=== PATIENT | female | born 1940 | race Caucasian/White ===

== ENCOUNTER 2016-02-19 02:42 | Inpatient (IN) | payer OTHER ==
[2016-02-15 14:34] LABS: MANUAL DIFF NEEDED? NO
[2016-02-15 14:41] LABS: URINE SOURCE CLEAN CATCH
[2016-02-15 14:41] LABS: BASO% 0.4 % (0.0-0.8); EOS# 0.16 X1000 (0.0-0.7); EOS% 2.2 % (0.0-10.0); HEMATOCRIT 41.9 % (37.0-47.0); HEMOGLOBIN 13.1 g/dL (12.0-16.0); LYMPH# 1.27 X1000 (1.2-3.4); LYMPH% 17.2 % (20.5-51.1); MCH 31.3 PG (27-31); MCHC 31.3 g/dL (33-37); MCV 100.2 FL (81-99); MONO# 0.57 X1000 (0.11-0.59); MONO% 7.7 % (1.7-9.3); MPV 9.8 FL (7.4-10.4); NEUT% 72.5 % (42.2-75.2); PLT 247 X1000 (130-400); RBC 4.18 XMIL (4.2-5.4)
[2016-02-15 14:45] LABS: BILIRUBIN URINE NEGATIVE (NEGATIVE); BLOOD URINE NEGATIVE (NEGATIVE); CLARITY CLEAR (CLEAR); COLOR YELLOW; GLUCOSE URINE NEGATIVE (NEGATIVE); LEUKOCYTES URINE MODERATE (NEGATIVE); NITRITE URINE POSITIVE (NEGATIVE); PROTEIN URINE TRACE mg/dL (NEGATIVE); UROBILINOGEN URINE 0.2 EU/dL (0.2-1.0)
[2016-02-15 14:50] LABS: INR 1.05; PROTIME 11.1 Seconds (9.2-11.7); PTT 26.6 Seconds (22.0-36.0)
[2016-02-15 14:54] LABS: URINE CAST NONE SEEN /LPF; URINE CRYSTAL NONE SEEN /HPF; URINE EPITHELIAL CELLS <10 /HPF (<10); URINE RBC <10 /HPF (<10); URINE WBC 20-40 /HPF (<10)
[2016-02-15 14:56] LABS: CALCIUM 9.4 mg/dL (8.8-10.2); POTASSIUM 4.3 mmol/L (3.5-5.1)
[2016-02-19] MEDS ORDERED: REGLAN ONE (10:29)
[2016-02-19] MEDS ORDERED: PEPCID ONE (10:29)
[2016-02-19] MEDS ORDERED: LYRICA ONE (10:30)
[2016-02-19] MEDS ORDERED: CELEBREX ONE (10:30)
[2016-02-19] MEDS ORDERED: LR 1,000 ML ONE (10:30)
[2016-02-19] MEDS ORDERED: COLACE ONE (10:30)
[2016-02-19] MEDS ORDERED: KEFZOL 2 GM/D5W 50 ML ONE (10:31)
--- NOTE | 2016-02-19 10:34 | HISTORY AND PHYSICAL ---
CHIEF COMPLAINT: Pain, left knee. HISTORY OF PRESENT ILLNESS: This is a 75-year-old, white female with a history of increasing pain about her left knee for several years. No improvement seen with conservative treatment. Examination and x-rays compatible with osteoarthritis about her left knee. Cyril that she would benefit from admission for surgery for a left total knee arthroplasty. This has been discussed with her including expected results and possible complications, and she wished to proceed. Regular physician is Dr. Jimenez in [place]. DRUG ALLERGIES: She is allergic to Levaquin. REGULAR MEDICATIONS: Include aspirin, Zocor, valsartan, , Zoloft, Zetia, carvedilol, Flomax. Please see the chart for additional medications and dosages. SERIOUS ILLNESSES: Does have a history of hypertension, coronary artery disease. Has had coronary stents, [place] in 1999, COPD, sleep apnea. Uses CPAP at night. Gastric reflux, breast cancer bilaterally. PREVIOUS SURGERIES: Had bilateral mastectomy, cervical fusion, hysterectomy, right shoulder surgery, T and A, bilateral cataract surgery. REVIEW OF SYSTEMS: HEENT: Denies any history of headaches, dizziness, or blacking out. Cardiorespiratory: Does have a history of sleep apnea. Uses CPAP. History of COPD. Stopped smoking in approximately 1999. History of hypertension, coronary artery disease with stent, [place] in 1999. GI: Gastric reflux. : Negative. Musculoskeletal: See history of present illness. PHYSICAL EXAMINATION: GENERAL: This is a well-developed, overweight, white female who is alert and oriented. VITAL SIGNS: Height 5 feet 4 inches, weight 236 pounds. HEENT: Head normocephalic. Pupils equally round and reactive to light. Extraocular movements are intact. NECK: Fair range of motion. CHEST: Clear to auscultation bilaterally. HEART: Regular rhythm. ABDOMEN: Soft, nontender. Bowel sounds are active. LOWER EXTREMITIES: Examination of her left knee shows medial and lateral joint line tenderness, worse with range of motion. There is crepitus present with range of motion. Range of motion is from approximately 10 degrees from full extension to 95 degrees of flexion. No instability with stressing ligaments. Neurovascular function intact distally. IMPRESSION: Osteoarthritis, left knee. PLAN: Admit for surgery for a left total knee arthroplasty. Expected results and possible complications have been discussed with her. She seems to have understanding of this and wished to proceed. All questions were answered. Dictated by Ascencion Ford RN for Cornelius Rogers MD
[2016-02-19] MEDS ORDERED: CYKLOKAPRON 1,000 MG/NS 100 ML ONE ×2 (11:20)
[2016-02-19] MEDS ORDERED: CLAVE SECONDARY SET 11953 ONE (11:20)
[2016-02-19] MEDS ORDERED: SENSORCAINE 0.25%/EPI 1:200,000 ONE (12:00)
[2016-02-19] MEDS ORDERED: SODIUM CHLORIDE 0.9% ONE (12:00)
[2016-02-19] MEDS ORDERED: TORADOL ONE (12:00)
[2016-02-19] MEDS ORDERED: DURAMORPH ONE (12:00)
[2016-02-19] MEDS ORDERED: VANCOMYCIN ONE (12:00)
[2016-02-19] MEDS ORDERED: EXPAREL 1.3% ONE (12:01)
[2016-02-19] MEDS ORDERED: NEOSPORIN G.U. IRRIGANT ONE (12:01)
[2016-02-19 12:41] LABS: URINE MICRO REVIEW NEEDED? NO; URINE SOURCE CATH
[2016-02-19 12:45] LABS: BILIRUBIN URINE NEGATIVE (NEGATIVE); BLOOD URINE NEGATIVE (NEGATIVE); COLOR YELLOW; GLUCOSE URINE NEGATIVE (NEGATIVE); LEUKOCYTES URINE MODERATE (NEGATIVE); NITRITE URINE NEGATIVE (NEGATIVE); PH URINE 5.5; PROTEIN URINE TRACE mg/dL (NEGATIVE); SP GRAVITY URINE 1.017; TURBIDITY URINE CLEAR (CLEAR); UROBILINOGEN URINE NORMAL (NORMAL)
[2016-02-19 12:46] LABS: UR EPITHELIAL CELLS <10 /HPF (<10); URINE BACTERIA 4+ /HPF; URINE RBC <10 /HPF (<10)
[2016-02-19] MEDS ORDERED: NS 1,000 ML ONE (14:07)
[2016-02-19] MEDS ORDERED: DIPRIVAN 1% 50 ML ONE (14:44)
[2016-02-19] MEDS ORDERED: VERSED ONE (14:44)
[2016-02-19] MEDS ORDERED: FENTANYL ONE (14:44)
[2016-02-19] MEDS ORDERED: LR 2,000 ML ONE (15:04)
[2016-02-19] MEDS ORDERED: EPHEDRINE ONE (15:04)
[2016-02-19] MEDS ORDERED: DECADRON ONE (15:04)
[2016-02-19] MEDS ORDERED: ROBINUL ONE (15:04)
[2016-02-19] MEDS ORDERED: OFIRMEV 1000 MG/ISOTONIC SOLN 100 ML ONE (15:04)
[2016-02-19] MEDS ORDERED: MORPHINE IV PRN (16:02)
[2016-02-19] MEDS ORDERED: ZOFRAN IV PRN (16:03)
[2016-02-19] MEDS ORDERED: AMBIEN PO PRN (16:03)
[2016-02-19] MEDS ORDERED: MILK OF MAGNESIA PO PRN (16:03)
[2016-02-19] MEDS ORDERED: PRILOSEC PO PRN (16:22)
[2016-02-19] MEDS: ULTRAM PO SCH ×2 (16:55→23:20)
--- NOTE | 2016-02-19 17:14 | OPERATIVE NOTE ---
PROCEDURE DATE: 02/19/2016 PREOPERATIVE DIAGNOSIS: Left knee degenerative joint disease. POSTOPERATIVE DIAGNOSIS: Left knee degenerative joint disease. PROCEDURE: Left total knee arthroplasty using [employer] size 5 femoral component, a size 4 base plate, an 11 mm articular insert, and a 29 mm patellar component. ANESTHESIA: Spinal. SURGEON: Cornelius Rogers MD FILM VAULT SUPERVISOR: SAMEERA Trevino COMPLICATIONS: None. BLOOD LOSS: Minimal. DRAINS: Hemovac x1. DESCRIPTION OF PROCEDURE: The patient was brought to the operative suite and placed in the supine position. After satisfactory administration of spinal anesthesia, a well- padded tourniquet was placed on the left proximal thigh, left lower extremity was prepped and draped in the usual sterile fashion. Leg was exsanguinated. Tourniquet insufflated to 350 torr. Longitudinal incision was made beginning at the superior pole of the patella and extended distally to the tibia tuberosity. It was dissected sharply through the skin and full-thickness skin flaps were elevated medially and laterally. A medial arthrotomy was made with a vastus snip. The medial capsule was elevated off the medial tibial plateau. The prepatellar fat pad, ACL, PCL, medial meniscus, lateral meniscus were excised. A drill was entered in the center of the distal femur. An intramedullary guide was placed, distal cutting block was pinned into place, distal cut was made with an oscillating saw. The femur was sized to size 5. A size 5 cutting block was pinned into place. The anterior cuts, chamfer cuts, and posterior cuts were made with an oscillating saw. Marginal osteophytes were removed with the rongeur. A box cutting block was pinned in place. A box cut was made with a box osteotome and oscillating saw. Posterior condyle osteophytes removed with curved osteotome and rongeur. Attention was then directed to the tibia. A drill was entered in the center of the tibia, an intramedullary guide was placed. Alignment checked with drop samantha, referencing off the anterior cortex of the tibia and the second ray of the foot , taking 2 mm off the low side of the tibia, which in this case was medially. The tibial cutting block was pinned into place and the articular surface of the tibial plateau was removed with an oscillating saw. Flexion extension gaps were checked and balanced at 11 mm. The tibia was sized to a size 4, a size 4 guide was used for the fin punch. The tibial trial, femoral trial, and 11 mm articular insert were placed, taken through range of motion, found to have excellent alignment, balancing, range of motion, and patellar tracking. Then 9 mm of the articular surface of the patella were then removed from the patella and then the patella sized to size 29, a size 29 guide was used to drill peg holes. The lateral facet was chamfered 30 to 45 degrees. Patella trial was placed, taken through range of motion and found to have patella subluxation. A lateral release was then performed and then the patella tracked appropriately. All trials were then removed. The knee was copiously irrigated and dried, being certain all bone debris was removed. The tibial component, femoral component, and patellar component were cemented into place. Excess cement being removed with a [place]. Once the cement had hardened, excess cement was again removed with an osteotome. The knee was again copiously irrigated and dried, being certain all bone and cement debris were removed. The trial articular insert was removed. The knee was copiously infiltrated with Exparel, including posterior capsule, anterior capsule, medial and lateral collateral ligaments, anterior musculature, and subcutaneous tissue, then the definitive 11 mm articular insert was locked into place. The knee was again taken through range of motion, again found to have excellent alignment, balancing, range of motion, and patellar tracking. A drain was placed exiting superior laterally and buried in the lateral gutter. The medial arthrotomy was closed with 0 Vicryl. Skin edge approximated with 2-0 Vicryl. Skin was closed with skin murphy and a sterile dressing was applied. The patient tolerated the procedure well without complication. At the end of the procedure, all counts correct x2. The patient was transferred to the recovery room in stable condition. [facility]
[2016-02-19] MEDS: PERIDEX MT SCH (20:23)
[2016-02-19] MEDS: KEFZOL 2 GM/D5W 50 ML IV SCH (20:23)
[2016-02-19] MEDS: COREG PO SCH (20:23)
[2016-02-19] MEDS: TYLENOL PO SCH (20:23)
[2016-02-19] MEDS: SKELAXIN PO SCH (20:24)
[2016-02-19] MEDS: LYRICA PO SCH (20:25)
[2016-02-19] MEDS: COLACE PO SCH (20:25)
[2016-02-19] MEDS: NS 1,000 ML IV SCH (20:25)
[2016-02-19] MEDS ORDERED: ZOCOR PO SCH (21:00)
[2016-02-19] MEDS: REQUIP PO SCH (21:51)
[2016-02-19] MEDS: OXY IR PO PRN (21:54)
[2016-02-20] MEDS: BROVANA NEB INH SCH ×2 (00:24→08:19)
[2016-02-20] MEDS: ULTRAM PO SCH ×2 (04:33→12:12)
[2016-02-20] MEDS: KEFZOL 2 GM/D5W 50 ML IV SCH (04:33)
[2016-02-20] MEDS: TYLENOL PO SCH ×2 (04:34→08:49)
[2016-02-20 05:56] LABS: HEMATOCRIT 34.6 % (37.0-47.0); HEMOGLOBIN 10.9 g/dL (12.0-16.0)
[2016-02-20] MEDS ORDERED: XARELTO PO SCH (06:00)
[2016-02-20 06:22] LABS: CALCIUM 8.1 mg/dL (8.8-10.2); POTASSIUM 4.9 mmol/L (3.5-5.1)
[2016-02-20] MEDS: NS 1,000 ML IV SCH (08:24)
[2016-02-20] MEDS: REQUIP PO SCH (08:48)
[2016-02-20] MEDS: COLACE PO SCH (08:48)
[2016-02-20] MEDS: COREG PO SCH (08:49)
[2016-02-20] MEDS: PERIDEX MT SCH (08:51)
[2016-02-20] MEDS: LYRICA PO SCH (08:51)
[2016-02-20] MEDS: SKELAXIN PO SCH (08:52)
[2016-02-20] MEDS ORDERED: FEMARA PO SCH (09:00)
[2016-02-20] MEDS ORDERED: DIOVAN PO SCH (09:00)
[2016-02-20] MEDS ORDERED: CELEBREX PO SCH (09:00)
[2016-02-20] MEDS ORDERED: REQUIP PO SCH ×2 (09:00→21:00)
[2016-02-20] MEDS ORDERED: AMLODIPINE PO SCH (09:00)
[2016-02-20] MEDS ORDERED: DECADRON IV ONE (09:00)
[2016-02-20] MEDS ORDERED: HCTHIAZID PO SCH (09:00)
[2016-02-20] MEDS ORDERED: MACROBID PO SCH (09:00)
[2016-02-20] MEDS ORDERED: NORVASC PO SCH (09:00)
[2016-02-20] MEDS ORDERED: [UNRECOGNIZED DRUG - OTHER] PO SCH (09:00)
[2016-02-20] MEDS ORDERED: FLOMAX PO SCH (09:00)
[2016-02-20] MEDS ORDERED: VALSARTAN PO SCH (09:00)
[2016-02-20] MEDS ORDERED: ZOLOFT PO SCH (09:00)
[2016-02-20] MEDS ORDERED: HYDROCHLOROTHIAZIDE PO SCH (09:00)
[2016-02-20] MEDS ORDERED: ZETIA PO SCH (09:00)
[2016-02-20 11:54] VITALS: BP 127/59
[2016-02-20] MEDS: OXY IR PO PRN (14:06)
--- NOTE | 2016-02-20 20:38 | DISCHARGE SUMMARY ---
ADMISSION DATE: 02/19/2016 DISCHARGE DATE: 02/20/2016 DISCHARGE DIAGNOSIS: Left knee degenerative joint disease status post left total knee arthroplasty. DISCHARGE MEDICATIONS: See discharge medication list. DISPOSITION: Patient discharged home with home health and physical therapy. DISCHARGE INSTRUCTIONS: 1. Instructed to return for any signs of infection, deep vein thrombosis. 2. Instructed to return to see Dr. Rogers next . HOSPITAL COURSE: On the day of admission, the patient underwent left total knee arthroplasty. Her postoperative course was unremarkable. At discharge she is afebrile, tolerating a regular diet, ambulating with physical therapy. Her wound is clean, dry, intact without sign of infection. She is discharged home in stable condition with instructions to follow up as described above.
== END 2016-02-20 15:29 | disposition home health service (06) | DRG 470 ==
LOC: SURHOLD 02:42 → 4N 12:44
PROVIDERS: ADMIT Orthopaedic Surgery; ATTEND Orthopaedic Surgery
PROC: 0SRD0J9 Replacement of Left Knee Joint with Synthetic Substitute, Cemented, Open Approach (ICD-10-PCS; principal; 2016-02-19 12:05)
DX: M17.9 Osteoarthritis of knee, unspecified (principal); J44.9 Chronic obstructive pulmonary disease, unspecified; E11.9 Type 2 diabetes mellitus without complications; Z68.41 Body mass index [BMI] 40.0-44.9, adult; I25.10 Atherosclerotic heart disease of native coronary artery without angina pectoris; Z95.5 Presence of coronary angioplasty implant and graft; G47.33 Obstructive sleep apnea (adult) (pediatric); E66.3 Overweight; Z98.1 Arthrodesis status; I10 Essential (primary) hypertension; I25.2 Old myocardial infarction; Z85.3 Personal history of malignant neoplasm of breast; Z87.891 Personal history of nicotine dependence; Z87.11 Personal history of peptic ulcer disease; Z92.21 Personal history of antineoplastic chemotherapy; Z92.3 Personal history of irradiation; F32.9 Major depressive disorder, single episode, unspecified; K21.9 Gastro-esophageal reflux disease without esophagitis; Z79.899 Other long term (current) drug therapy; Z79.82 Long term (current) use of aspirin
CPT/HCPCS: 80048; 81001; 82948; 85014; 85018; 85025; 85610; 85730; 86850; 86900; 86901; 94640; 94761; 94799; C9290; J0131; J0690; J1100; J1885; J2250; J2270; J2274; J3010; J3370; J7030; J7120; 97110-GP; 97116-GP; 97530-GP